=== PATIENT | female | born 1970 | race Caucasian/White ===

== ENCOUNTER 2019-05-07 16:09 | Emergency (ER) | payer SELFPAY ==
[~2019-05-07] VITALS: Ht 162.6 cm; Wt 93.0 kg
[2019-05-07 16:28] VITALS: BP 115/77
--- NOTE | 2019-05-07 16:33 | NUR ---
urine cup handed to pt for sample
--- NOTE | 2019-05-07 17:30 | NUR ---
PT AMBULATED TO ER BED 03
--- NOTE | 2019-05-07 17:50 | NUR ---
48/F c/o fever for the past 5 days. Pt also c/o body aches and "not feeling well." Patient states she took a Keflex she had at home from a dental procedure and took one but was advised by a friend to not take abx for a viral illness.
[2019-05-07 18:04] VITALS: BP 110/80
--- NOTE | 2019-05-07 18:04 | NUR ---
Patient discharged with v/s stable. Written and verbal after care instructions given and explained. Patient alert, oriented and verbalized understanding of instructions. Ambulatory with steady gait. All questions addressed prior to discharge. ID band removed. Patient advised to follow up with PMD. Pt instructed to increase fluid intake and complete antibioticin it's entirety. Rx of Keflex 500mg given. Patient educated on indication of medication including possible reaction and side effects. Opportunity to ask questions provided and answered.
== END 2019-05-07 18:04 | disposition home or self-care (01) ==
LOC: MED 16:09
DX: N39.0 Urinary tract infection, site not specified (principal); H92.03 Otalgia, bilateral; E07.9 Disorder of thyroid, unspecified; Z88.0 Allergy status to penicillin; Z88.8 Allergy status to other drugs, medicaments and biological substances
CPT/HCPCS: 81002; 81025; 99283

== ENCOUNTER 2019-05-13 19:01 | Emergency (ER) | payer SELFPAY ==
[~2019-05-13] VITALS: Ht 162.6 cm; Wt 92.5 kg
[2019-05-13 19:15] VITALS: BP 132/71
--- NOTE | 2019-05-13 19:35 | NUR ---
49 YO F BIB SELF PRESENTS TO ED C/O INTERMITTENT FEVERS OFF AND ON X 1.5 WEEKS. WAS DX WITH UTI AND VIRAL INFECTION LAST TUESDAY. FINISHED KEFLEX YESTERDAY. PT STATES SHE CONTINUES TO FEEL "HOT AND COLD" AND REPORTS 3/10 LOWER ABD PRESSURE. PT STATES "I HAVEN'T GONE TO THE BATHROOM IN 2 DAYS". ABD IS SOFT, PLIABLE, NON TENDER. BOWEL SOUNDS ACTIVE +4. DENIES URINARY PAIN/BURNING, SORE THROAT, CONGESTION, NVD. REPORTS MILD DRY COUGH. PMH-- HYPOTHYROID
[2019-05-13] MEDS ORDERED: NACL 0.9% 1,000 ML IV ONE (19:40)
--- NOTE | 2019-05-13 19:43 | NUR ---
DR. JASPER COLEMAN AT BEDSIDE.
--- NOTE | 2019-05-13 19:45 | NUR ---
NS BOLUS INFUSUING FOR HYDRATION.
[2019-05-13 20:30] VITALS: BP 132/71
== END 2019-05-13 20:30 | disposition home or self-care (01) ==
LOC: MED 19:01
DX: R50.9 Fever, unspecified (principal); E86.0 Dehydration; Z90.49 Acquired absence of other specified parts of digestive tract; Z88.0 Allergy status to penicillin; Z91.09 Other allergy status, other than to drugs and biological substances
CPT/HCPCS: 81002; 81025; 96360; 99283; J7030

== ENCOUNTER 2019-05-15 16:07 | Emergency (ER) | payer SELFPAY ==
[~2019-05-15] VITALS: Ht 162.6 cm; Wt 110.7 kg
[2019-05-15 16:09] VITALS: BP 142/50
--- NOTE | 2019-05-15 16:18 | NUR ---
PT AMB TO BED 12.
--- NOTE | 2019-05-15 16:26 | NUR ---
Patient being evaluated by DR MENSAH at bedside.
[2019-05-15] MEDS ORDERED: NACL 0.9% 1,000 ML IV ONE (16:31)
[2019-05-15] MEDS ORDERED: NACL 0.9% 1,000 ML IV SCH (16:31)
[2019-05-15] MEDS ORDERED: PROMETHAZINE 25 MG/ML VIAL IM ONE (16:35)
[2019-05-15] MEDS ORDERED: KETOROLAC 30 MG/ML VIAL IVP ONE (16:35)
[2019-05-15] MEDS ORDERED: LORazepam 2 MG/ML VIAL IVP ONE (16:35)
[2019-05-15 17:01] LABS: BASOPHILS # (AUTO) 0.1 K/uL (0.00-0.22); BASOPHILS % (AUTO) 1.1 % (0.0-2.0); EOSINOPHILS % (AUTO) 0.1 % (0.0-4.0); HEMATOCRIT 36.5 % (36-48); HEMOGLOBIN 12.1 g/dL (12.0-16.0); LYMPHOCYTES # (AUTO) 2.5 K/uL (2.5-16.5); LYMPHOCYTES % (AUTO) 23.1 % (20.5-51.1); MEAN CORPUSCULAR HEMOGLOBIN 30 pg (27-31); MEAN CORPUSCULAR HGB CONC 33 g/dL (33-37); MEAN CORPUSCULAR VOLUME 89.2 fL (80-94); MONOCYTES # (AUTO) 0.6 K/uL (0.8-1.0); MONOCYTES % (AUTO) 5.1 % (1.7-9.3); NEUTROPHILS # (AUTO) 7.7 K/uL (1.8-7.7); NEUTROPHILS % (AUTO) 70.6 % (42.2-75.2); PLATELET COUNT (AUTO) 292 K/uL (140-450); RED BLOOD CELL COUNT(AUTO) 4.09 MIL/uL (4.20-5.40); RED CELL DISTRIBUTION WIDTH 13.2 % (11.6-13.7)
--- NOTE | 2019-05-15 17:05 | NUR ---
BIB SELF C/O FLU LIKE SYMPTOMS, BODY ACHES, FATIGUE, ANXIETY X5 DAYS. PATIENT REPORTS FEELING DEHYDRATED. DENIES ANY PAIN, N/V/D, LOSS OF APPETITE. PMH: ANXIETY ALLERGIES: PENICILLINS, IODINE NO MEDS REPORTED
[2019-05-15 17:08] LABS: APPEARANCE,URINE CLEAR (CLEAR); BILIRUBIN,URINE NEGATIVE (NEGATIVE); BLOOD, URINE TRACE-I (NEGATIVE); COLOR,URINE YELLOW (YELLOW); LEUKOCYTE ESTERASE ,URINE NEGATIVE (NEGATIVE); NITRITE, URINE NEGATIVE (NEGATIVE); UGLUCOSE NEGATIVE (NEGATIVE)
[2019-05-15 17:15] LABS: BARBITURATE, URINE NEG. ng/ml (NEG <=200); BENZODIAZEPINE, URINE NEG. ng/mL (NEG <=200); CANNABINOID, URINE NEG. ng/mL (NEG <=50); COCAINE, URINE NEG. ng/mL (NEG <=300); OPIATE, URINE NEG. ng/mL (NEG <=2000); PHENCYCLIDINE SCREEN,URINE NEG. ng/mL (NEG <=25)
[2019-05-15 17:19] LABS: RBC,URINE NONE SEEN /HPF (0-5); WBC,URINE NONE SEEN /HPF (0-5)
[2019-05-15 17:24] LABS: ANION GAP 13.5 (8-16); CARBON DIOXIDE 25.1 mmol/L (21-32); CHLORIDE 99 mmol/L (98-107); GFR ARICAN-AMERICAN 76 mL/min (>90); GLUCOSE 102 mg/dL (74-106); POTASSIUM 3.6 mmol/L (3.5-5.1); PROTHROMBIN TIME 13.8 secs (10.8-13.4); SODIUM SERUM 134 mmol/L (136-145); UREA NITROGEN, BLOOD 4 mg/dL (7-18)
[2019-05-15 17:39] LABS: AMYLASE 23 U/L (25-115); ASPARTATE AMINOTRANSFERASE 80 U/L (15-37); LIPASE 91 U/L (73-393); MAGNESIUM 2.3 mg/dL (1.8-2.4); THYROID STIMULATING HORMONE 22.18 uIU/mL (0.34-3.74); TOTAL BILIRUBIN 0.8 mg/dL (0.0-1.0)
[2019-05-15 18:28] LABS: ACETONE, SERUM NEGATIVE (NEGATIVE)
[2019-05-15 18:40] VITALS: BP 142/50
--- NOTE | 2019-05-15 18:41 | NUR ---
Patient discharged with v/s stable. Written and verbal after care instructions given and explained. Patient alert, oriented and verbalized understanding of instructions. Ambulatory with steady gait. All questions addressed prior to discharge. ID band removed. Patient advised to follow up with PMD. Rx of VISTARIL given. Patient educated on indication of medication including possible reaction and side effects. Opportunity to ask questions provided and answered.
--- NOTE | 2019-05-17 12:06 | NUR ---
Late entry. Confirmed with RN that 0.9 NS completed at 1840
== END 2019-05-15 18:41 | disposition home or self-care (01) ==
LOC: MED 16:07
DX: F41.0 Panic disorder [episodic paroxysmal anxiety] (principal); E03.9 Hypothyroidism, unspecified; Z88.0 Allergy status to penicillin; Z88.8 Allergy status to other drugs, medicaments and biological substances; Z90.49 Acquired absence of other specified parts of digestive tract; Z86.59 Personal history of other mental and behavioral disorders; E86.0 Dehydration
CPT/HCPCS: 36415; 80053; 80305; 81001; 81025; 82009; 82150; 83605; 83690; 83735; 84443; 84550; 85025; 85610; 96361; 96374; 99283; G0482; J2060; J7030; 81002; J1885; J2550

== ENCOUNTER 2019-05-18 20:10 | Emergency (ER) | payer SELFPAY ==
[~2019-05-18] VITALS: Ht 162.6 cm; Wt 92.1 kg
[2019-05-18 20:10] VITALS: BP 150/86
--- NOTE | 2019-05-18 20:10 | NUR ---
PT AMBULATED FROM [facility] TO [facility]. AWAITING OPEN BED.
--- NOTE | 2019-05-18 20:25 | NUR ---
PT AMBULATED TO BED 1.
[2019-05-18] MEDS ORDERED: IBUPROFEN 600 MG TAB PO ONE (20:30)
--- NOTE | 2019-05-18 20:57 | NUR ---
49 Y/O F C/O ABDOMINAL PAIN WITH MOVEMENT 4/10 ALL FOUR QUADRANTS WITH NAUSEA. PT DENIES VOMITTING/DIAHREA. PT HAD A RECENT UTI, FINISHED ANTIBIOTICS. PT STATES SHE HAS HAD A FEVER OFF AND ON FOR X2 WEEKS. PT ABDOMEN IS SOFT TO TOUCH, ROUND. BOWEL SOUNDS ACTIVE X4 QUADRANTS. PT HOOKED UP TO CARDIAC/O2 MONITOR. COLD TOWELS PLACED ON PT FOREHEAD, BACK OF NECK. PT PUT IN A GOWN, BED LOWERED, X1 SIDE RAIL IN PLACE. ALLERGIES: PENICILLINS, INJECT IDODINE.
--- NOTE | 2019-05-18 21:05 | NUR ---
REPORT GIVEN TO VASHTI VENEGAS FOR TRANSFER OF CARE.
--- NOTE | 2019-05-18 21:16 | NUR ---
PT TAKEN TO XRAY
--- NOTE | 2019-05-18 21:33 | NUR ---
PT RETURNED FROM XRAY
[2019-05-18] MEDS ORDERED: NACL 0.9% 500 ML IV ONE (22:15)
[2019-05-18 23:47] VITALS: BP 137/83
--- NOTE | 2019-05-18 23:47 | NUR ---
PT DISCHARGED WITH PAPERWORK. EDUCATED PT REGARDING MEDICATION AND D/C DIAGNOSIS. PT VERBALIZED UNDERSTANDING. TOLD PT TO FOLLOW UP WITH PCP AND WHEN TO RETURN TO ED. PT AT STABLE CONDITION. ALL QUESTIONS ANSWERED.
== END 2019-05-18 23:47 | disposition home or self-care (01) ==
LOC: MED 20:10
DX: R10.84 Generalized abdominal pain (principal); E03.9 Hypothyroidism, unspecified; R11.0 Nausea; Z88.0 Allergy status to penicillin; Z88.8 Allergy status to other drugs, medicaments and biological substances
CPT/HCPCS: 74022; 81002; 81025; 99283; J7030